=== PATIENT | male | born 1965 | race Two or more races ===

== ENCOUNTER 2023-05-17 14:52 | Emergency (ER) | payer OTHER ==
[~2023-05-17] VITALS: Ht 170.2 cm; Wt 68.0 kg
[2023-05-17 15:20] VITALS: BP 152/76; PULSE 90; RESP 18; TEMP 97.8; O2SAT 99
[2023-05-17] MEDS ORDERED: CYCL-711 PO (17:45)
[2023-05-17] MEDS ORDERED: ACET-10509 PO (17:45)
[2023-05-17] MEDS ORDERED: LID5T TP (17:45)
[2023-05-17 18:04] VITALS: BP 124/65; PULSE 76; RESP 16; TEMP 98; O2SAT 98
== END 2023-05-17 18:04 | disposition home or self-care (01) ==
LOC: MED 14:52
DX: S39.012A Strain of muscle, fascia and tendon of lower back, initial encounter (principal); M54.32 Sciatica, left side; I10 Essential (primary) hypertension; X58.XXXA Exposure to other specified factors, initial encounter; Y93.89 Activity, other specified; Y92.89 Other specified places as the place of occurrence of the external cause; Y99.8 Other external cause status
CPT/HCPCS: 99283